=== PATIENT | male | born 1975 | race Caucasian/White ===

== ENCOUNTER 2017-12-07 08:38 | Day surgery (SDC) | payer OTHER ==
[2017-12-06 09:40] LABS: HEMATOCRIT 42.1 % (42.0-54.0); HEMOGLOBIN 14.5 g/dL (13.5-17.5); MCH 31.2 pg (26.0-34.0); MCHC 34.4 g/dL (31.0-37.0); MCV 90.5 fL (80.0-100.0); MEAN PLATELET VOLUME 10.5 fL (7.4-10.4); RBC 4.65 10x6/uL (4.20-6.10); RDW 12.6 % (11.5-14.5); WBC 10.1 10x3/uL (4.8-10.8)
[2017-12-06 10:08] LABS: CALC OSMOLALITY 279 mosm/kg (275-300); CALCIUM 9.6 mg/dL (8.5-10.1); CARBON DIOXIDE 29.6 mmol/L (21.0-32.0); CHLORIDE - SERUM 101 mmol/L (98-107); CREATININE - SERUM 0.8 mg/dL (0.6-1.3); GLUCOSE 138 mg/dL (74-106); POTASSIUM - SERUM 4.4 mmol/L (3.5-5.1); SODIUM 139 mmol/L (136-145); UREA NITROGEN 13 mg/dL (7-18); eGFR NON AFRICAN AMERICAN > 90 mL/min (90-120)
[~2017-12-07] VITALS: Ht 177.8 cm; Wt 113.4 kg
--- NOTE | ~2017-12-07 | OP ---
PATIENT NAME: SERA GO MEDICAL RECORD: [id number] :79 LOCATION:[facility] ADMISSION DATE: SURGEON: CLINTON LUCAS, JOBY CORCORAN DATE OF OPERATION: 12/07/2017 PREOPERATIVE DIAGNOSES: 1. Medial meniscus tear. 2. Possible ACL tear. 3. Large prepatellar hematoma. POSTOPERATIVE DIAGNOSES: 1. Large osteochondral defect of the medial femoral condyle. 2. Medial meniscus tear. 3. Prepatellar hematoma. PROCEDURES: 1. Osteochondral allograft to the medial femoral condyle, greater than 2.5 cm. 2. Arthroscopic partial medial meniscectomy of the right knee. 3. Open prepatellar bursa excision. SURGEON: Joby Alonzo MD ANESTHESIA: General. INTRAOPERATIVE COMPLICATIONS: None. SUMMARY OF PATHOLOGIC FINDINGS: The patient did have a small tear of the posterior horn of medial meniscus as well as a prepatellar hematoma. The patient had a large osteochondral defect that was not seen on the MRI. For this reason, the decision was made to proceed with osteochondral allograft using Cartiform allograft as well as ACP and the prepatellar bursa was excised in the same excision. The prepatellar bursa was incised open. OPERATIVE SUMMARY IN DETAIL: After obtaining the appropriate preoperative orthopedic surgery consent as well as anesthetic consultation, evaluation and clearance, the patient was brought to the operating room and placed on the operating table in supine position. After general laryngeal mask airway was administered, tourniquet was placed about the proximal aspect of the right lower extremity. Right lower extremity was then prepped and draped in routine sterile fashion. The leg was elevated and exsanguinated, tourniquet inflated to 350 mmHg. Routine inferolateral portal was established followed by superior medial portal and inferomedial portal. Diagnostic arthroscopy revealed the patient did have some attritional changes to the ACL, but it was intact and offered good stability with arthroscopic evaluated testing. At this point, the medial meniscus tear was identified and debrided using the arthroscopic resector. Clearly the most pathologic problem in the knee was the complex osteochondral defect. At this point, the graft preparations were made using the resection. All osteochondral flaps were removed resulting in a lesion that is approximately 2 cm long x 1.5 mm wide giving in a fairly large area. At this point, the arthroscopic portion of the case was terminated. Incision was made over the prepatellar bursa. Careful and gentle dissection of the prepatellar hematoma was undertaken and this was removed in its entirety and sent to pathology for permanent specimen. Paramedian arthrotomy was performed through a very small paramedian arthrotomy. The knee was flexed, patella was slightly retracted laterally for adequate visualization of the large osteochondral defect. Further OPERATIVE REPORT [id number] SERA GO preparations of the defect included a microfracture using small K-Wire. Having completed this, the Cartiform graft was cut to fit the lesion. The Cartiform graft was then soaked in ACP (autologous conditioned plasma) from the patient. Following this, a 2.9 Vicryl loaded PushLock was placed in the middle of the lesion for anchorage. The Cartiform graft was then anchored into the lesion with a perfect fit and tied with the 2-0 Vicryl. Having completed this, BioGlue was used over the top for further fixation. Both arthroscopic open pre and post-graft pictures were taken and placed in a part of the chart for permanent storage. Having completed this, the wound was irrigated gently and had this multiple times during the case. All irrigant was suctioned. The residual of the ACP was then placed into the knee. The paramedian arthrotomy was closed with #2 Ethibond followed by #1 Vicryl, 2-0 Vicryl, and skin stacy. Arthroscopy portals were likewise closed, sterile dressings were applied. Tourniquet was deflated. The patient was awakened, taken to recovery in stable condition. All final needle and sponge counts were correct. TRANSINT:[id number] Voice Confirmation ID: [id number] DOCUMENT ID: [id number] CLINTON LUCAS, JOBY CORCORAN at 1401 CC: [id number] DICTATION DATE: 12/07/17 1140 AUDIO ENGINEER: 12/07/17 1205 [facility] 12/07/17 [id number] [place] [address]
[2017-12-07 07:52] VITALS: BP 112/67; Ht 177.8 cm; Wt 113.4 kg
[~2017-12-07 08:38] MED LIST: NICODERM C1 PATCH .1 TRANSDERM
[2017-12-07] MEDS ORDERED: DILAUDID4 MG PO (11:43)
== END 2017-12-07 13:50 | disposition home or self-care (01) ==
LOC: D.OPS 08:38 → D.PAN 10:00 → D.OPS 10:30
PROVIDERS: Anesthesiology
DX: S83.231A Complex tear of medial meniscus, current injury, right knee, initial encounter (principal); S83.511A Sprain of anterior cruciate ligament of right knee, initial encounter; M70.42 Prepatellar bursitis, left knee; E11.9 Type 2 diabetes mellitus without complications; K21.9 Gastro-esophageal reflux disease without esophagitis; Z87.891 Personal history of nicotine dependence; Z01.812 Encounter for preprocedural laboratory examination

== ENCOUNTER → 2018-04-19 07:29 | Outpatient (CLI) | payer OTHER ==
[2017-12-07 07:52] VITALS: BMI 35.9
[~2018-04-19 07:29] MED LIST changes: +DILAUDID4 MG PO
== END | disposition home or self-care (01) ==
LOC: D.MRI 04-15 11:00
DX: M25.561 Pain in right knee (principal)